=== PATIENT | male | born 1985 | race American Indian/Alaskan Native ===

== ENCOUNTER 2017-04-02 21:48 | Emergency (ER) | payer BC, OTHER ==
[2017-04-02 22:04] VITALS: BP 116/75; PULSE 74; RESP 20; TEMP 98.8; O2SAT 99
--- NOTE | 2017-04-02 22:28 | C.PDOC ---
History Of Present Illness 31 year old male presents to the ER with a complaint of body aches and mild headaches intermittently for the past 3-4 days, associated with nasal congestion. Patient denies headache at this time, cough, fever, or sick contact. Time Seen by Provider: 04/02/17 22:09 Chief Complaint (Nursing): Cough, Cold, Congestion History Per: Patient History/Exam Limitations: no limitations Onset/Duration Of Symptoms: Days, Intermittent Episodes Current Symptoms Are (Timing): Still Present Location Of Pain: None Sick Contacts (Context): None Associated Symptoms: Myalgias, Other (Headache). denies: Fever, Cough Ear Symptoms: Bilateral: None Recent travel outside of the [place]: No Past Medical History Reviewed: Historical Data, Nursing Documentation, Vital Signs Vital Signs: Last Vital Signs Temp 98.8 F 04/02/17 22:00 Pulse 74 04/02/17 22:00 Resp 20 04/02/17 22:00 BP 116/75 04/02/17 22:00 Pulse Ox 99 04/02/17 22:33 - Medical History PMH: Back Problems Surgical History: No Surg Hx Family History: States: Unknown Family Hx - Social History Hx Alcohol Use: No Hx Substance Use: No - Immunization History Hx Tetanus Toxoid Vaccination: No Hx Influenza Vaccination: Yes Hx Pneumococcal Vaccination: No Review Of Systems Constitutional: Negative for: Fever, Chills ENT: Positive for: Nose Congestion Respiratory: Negative for: Cough Musculoskeletal: Positive for: Other (Body aches) Neurological: Positive for: Headache Physical Exam - Physical Exam Appears: Non-toxic, No Acute Distress Skin: Normal Color, Warm, Dry Head: Atraumatic, Normacephalic Oral Mucosa: Moist Chest: Symmetrical, No Tenderness Cardiovascular: Rhythm Regular Respiratory: Normal Breath Sounds, No Rales, No Rhonchi, No Wheezing Neurological/Psych: Oriented x3, Normal Speech ED Course And Treatment O2 Sat by Pulse Oximetry: 99 (Room air) Pulse Ox Interpretation: Normal Progress Note: Naproxen administered for pain. Patient is requesting a note for work, patient given note and instructed to follow up with PMD. Disposition Counseled Patient/Family Regarding: Diagnosis, Need For Followup, Rx Given - Disposition Disposition: HOME/ ROUTINE Disposition Time: 22:30 Condition: STABLE Additional Instructions: Please follow up with PMD or in clinic Take meds as directed Increase Fluids Return to ER if worse Prescriptions: Cetirizine HCl [Zyrtec] 10 mg PO DAILY #10 capsule Naproxen [Naprosyn] 1 tab PO BID PRN #20 tab PRN Reason: Pain Instructions: Viral Syndrome (ED) Forms: [facility] (German), Work Excuse - Clinical Impression Clinical Impression: Viral illness - PA / [employer]ARE TE[employer] / Resident Statement MD/DO has reviewed & agrees with the documentation as recorded. - Scribe Statement The provider has reviewed the documentation as recorded by the Scribangie Stockton All medical record entries made by the Tracyibangie were at my direction and personally dictated by me. I have reviewed the chart and agree that the record accurately reflects my personal performance of the history, physical exam, medical decision making, and the department course for this patient. I have also personally directed, reviewed, and agree with the discharge instructions and disposition.
[2017-04-02] MEDS ORDERED: Naproxen 550 mg Tab PO STA (22:29)
[2017-04-02] MEDS ORDERED: Naproxen 550 mg Tab PO ONE (22:29)
== END 2017-04-02 22:56 | disposition home or self-care (01) ==
LOC: C.ER 21:48
DX: B34.9 Viral infection, unspecified (principal)